=== PATIENT | male | born 1985 | race Caucasian/White ===

== ENCOUNTER 2016-12-04 10:53 | Emergency (ER) | payer BC ==
[2016-12-04 11:04] VITALS: BP 144/82
--- NOTE | 2016-12-04 11:16 | UC ---
Neck Pain HPI - HPI Summary HPI Summary: LEFT SIDE NECK PAIN X 1 DAY PAIN RADIATES TO THE LEFT SIDE OF HIS BACK TO HIS RIBS ? INJURY TO THE NECK HE BEND DOWN AT WORK , WAS NOT LIFTING ANYTHING PAIN IS WORSE WITH NECK MOVEMENTS , BETTER WITH REST - History of Current Complaint Chief Complaint: UCUpperExtremity Stated Complaint: NECK PAIN Time Seen by Provider: 12/04/16 11:00 Hx Obtained From: Patient Onset/Duration Of Injury/Symptoms: Hours - 2 Mechanism Of Injury: No Known Trauma Timing: Constant Onset/Duration: Sudden Onset, Lasting Hours - 2, Still Present Severity: Severe Location: Discrete At: - LEFT SIDE OF NECK Character: Sharp Aggravating Factors: Movement Alleviating Factors: Nothing Associated Signs & Symptoms: Positive: Negative. Negative: Swelling, Redness, Bruising, Fever, Nuchal Rigity, Weakness, Headache, Paresthesia - Allergies/Home Medications Allergies/Adverse Reactions: Allergies Allergy/AdvReac Type Severity Reaction Status Date / Time Bee Venom Allergy Anaphylatic Verified 12/04/16 11:04 Shock Home Medications: Home Medications Desloratidine (NF) [Clarinex (NF)] 5 mg PO DAILY 12/04/16 [History Confirmed 12/13] PMH/Surg Hx/FS Hx/Imm Hx Previously Healthy: Yes - Surgical History Surgical History: None - Family History Known Family History: Negative: Diabetes - Social History Alcohol Use: None Substance Use Type: None Smoking Status (MU): Never Smoked Tobacco Review Of Systems Constitutional: Positive: Negative Skin: Positive: Negative Eyes: Positive: Negative ENT: Positive: Negative Respiratory: Positive: Negative All Other Systems Reviewed And Are Negative: Yes Physical Exam Triage Information Reviewed: Yes Appearance: Well-Appearing, No Pain Distress, Well-Nourished Vital Signs: Initial Vital Signs Temp 98.2 F 12/04/16 11:00 Pulse 66 12/04/16 11:00 Resp 16 12/04/16 11:00 BP 144/82 12/04/16 11:00 Pulse Ox 100 12/04/16 11:00 Vital Signs Reviewed: Yes Eyes: Positive: Conjunctiva Clear ENT: Positive: Normal ENT inspection, Hearing grossly normal, Pharynx normal Neck: Positive: Supple, Tenderness @ - LEFT SIDE, Other: - LIMITED ROM ON ROTATION FLEXION Respiratory Exam: Normal Respiratory: Positive: Chest non-tender, Lungs clear, Normal breath sounds Cardiovascular: Positive: RRR, No Murmur, Pulses Normal Abdominal Exam: Normal Musculoskeletal Exam: Normal Neurological: Positive: Alert Psychological Exam: Normal Skin Exam: Normal Neck Pain Course/Dx - Differential Dx/Diagnosis Provider Diagnoses: NECK STRAIN Discharge - Discharge Plan Condition: Stable Disposition: HOME Prescriptions: Cyclobenzaprine TAB* [Flexeril 10 MG TAB*] 10 mg PO BID #20 tab Naproxen [Naproxen 500 mg] 500 mg PO BID #20 tab Patient Education Materials: Neck Pain (ED) Forms: *Work Release Referrals: No Primary Care Phys,NOPCP [Primary Care Provider] - 7 Days
== END 2016-12-04 11:30 | disposition home or self-care (01) ==
LOC: UCCORT 10:53
DX: S16.1XXA Strain of muscle, fascia and tendon at neck level, initial encounter (principal); X58.XXXA Exposure to other specified factors, initial encounter; Y93.9 Activity, unspecified; Y92.9 Unspecified place or not applicable; Y99.0 Civilian activity done for income or pay
CPT/HCPCS: 99202; G0463

== ENCOUNTER 2019-04-18 12:35 | Emergency (ER) | payer BC ==
[2019-04-18 14:05] VITALS: BP 145/103
[2019-04-18] MEDS ORDERED: Lidocaine 2% w EPI 1:100,000* 20 ML MDV VIAL INJ ONE (14:37)
--- NOTE | 2019-04-18 14:37 | UC ---
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 Tetanus up to date. - History Of Current Complaint Chief Complaint: UCLaceration Stated Complaint: LAC. LT HAND Time Seen by Provider: 04/18/19 14:30 Hx Obtained From: Patient Laceration Location: Hand - dorsum left hand Mechanism Of Injury: Sharp Trauma - metal Onset/Duration: Sudden Onset, Lasting Hours - 3, Still Present Severity: Mild Pain Intensity: 0 Aggravating Factors: Nothing Hands: 1 - 3.2 cm lac Related History: Dominant Hand Right - Allergies/Home Medications Allergies/Adverse Reactions: Allergies Allergy/AdvReac Type Severity Reaction Status Date / Time bee venom protein (honey bee) Allergy Anaphylatic Verified 04/18/19 14:06 Shock Home Medications: Home Medications NK [No Home Medications Reported] 04/18/19 [History Confirmed 04/18/19] PMH/Surg Hx/FS Hx/Imm Hx Previously Healthy: Yes - Surgical History Surgical History: None - Family History Known Family History: Positive: Hypertension Negative: Diabetes - Social History Occupation: Employed Full-time Lives: With Family Alcohol Use: Occasionally Substance Use Type: None Smoking Status (MU): Never Smoked Tobacco Review of Systems All Other Systems Reviewed And Are Negative: Yes Is Patient Immunocompromised?: No Physical Exam Triage Information Reviewed: Yes Appearance: Well-Appearing, No Pain Distress, Well-Nourished Vital Signs: Initial Vital Signs Temp 98.7 F 04/18/19 13:58 Pulse 81 04/18/19 13:58 Resp 16 04/18/19 13:58 BP 145/103 04/18/19 13:58 Pulse Ox 99 04/18/19 13:58 Vital Signs Reviewed: Yes Eyes: Positive: Conjunctiva Clear Neck exam: Normal Respiratory Exam: Normal Cardiovascular Exam: Normal Musculoskeletal Exam: Normal Neurological Exam: Normal Psychological Exam: Normal Skin Exam: Normal Laceration Repair - Laceration Repair 1 Description: Linear Laceration Size After Repair: Length (cm) - 3.2 Modified For Repair: No Type Injection: Local Anesthesia Used: 2.0% Lido Additive Used (in ml): Epi Cleansing Completed Via Routine Prep: Yes Irrigation With Pressure Irrigation Device: Yes Closure Material: Sutures Closure Method: Single Layer Suture Of: Skin - #8 simple running sutures Suture Type: Nylon - 4-0 Laceration Course/Dx - Differential Dx - Laceration/Wound Differental Diagnoses: Abrasion, Avulsion, Laceration, Puncture Wound - Diagnosis Provider Diagnosis: Laceration of left hand, Elevated blood pressure, situational Discharge ED - Sign-Out/Discharge Documenting (check all that apply): Patient Departure All imaging exams completed and their final reports reviewed: No Studies - Discharge Plan Condition: Stable Disposition: HOME Patient Education Materials: Laceration (ED), Care For Your Stitches (DC) Referrals: Germania Donnelly NP [Primary Care Provider] - 5 Days (recheck blood pressure) Additional Instructions: Ok to shower tonight. Suture removal in 10 days. Antibiotic ointment twice a day. - Billing Disposition and Condition Condition: STABLE Disposition: Home
== END 2019-04-18 15:17 | disposition home or self-care (01) ==
LOC: UCCORT 12:35
DX: S61.412A Laceration without foreign body of left hand, initial encounter (principal); R03.0 Elevated blood-pressure reading, without diagnosis of hypertension; Z91.030 Bee allergy status; W26.8XXA Contact with other sharp object(s), not elsewhere classified, initial encounter; Y92.9 Unspecified place or not applicable
CPT/HCPCS: 12002; 99211; G0463